=== PATIENT | male | born 1990 | race Caucasian/White ===

== ENCOUNTER 2019-11-13 21:34 | Emergency (ER) | payer MEDICAID ==
[2019-11-13] MEDS ORDERED: Succinylcholine 200 MG/10 ML MDV IV ONE (21:35)
[2019-11-13] MEDS ORDERED: LORazepam 2 MG/ML SDV IM ONE ×2 (21:37→22:23)
--- NOTE | 2019-11-13 21:42 | EDM.PDOC ---
ED HPI GENERAL MEDICAL PROBLEM - General Stated Complaint: AMBULANCE Time Seen by Provider: 11/13/19 21:38 Source of Information: Reports: EMS History Limitations: Reports: Physical Impairment, Other (deaf) - History of Present Illness INITIAL COMMENTS - FREE TEXT/NARRATIVE: EMS told by pt's cousin pt is deaf had seizure and his mother recently pt unco-op with care and transport. swung at EMS & staff. pt won't write to communicate. pt arrived screaming on-off. sign language vis i-pad contacted to assist. Generalized Pain Score (Numeric/FACES): 8 ED ROS GENERAL - Review of Systems Review Of Systems: Comprehensive ROS is negative, except as noted in HPI. - Physical Exam Exam: See Below Exam Limited By: Other (deaf and unco-op) General Appearance: Alert, WD/WN, Anxious Eye Exam: Bilateral Eye: PERRL (pupils ess ER @ 4mm) Ears: Hearing Grossly Normal Throat/Mouth: Normal Voice, No Airway Compromise Head Exam: Atraumatic Neck: Non-Tender, Full Range of Motion Respiratory/Chest: No Respiratory Distress Cardiovascular: Regular Rate, Rhythm GI/Abdominal: Soft, Non-Tender Neuro Exam (Abbreviated): Alert, Normal Cognition, No Motor/Sensory Deficits Psychiatric: Anxious Skin Exam: Warm, Dry, Normal Color Course - Vital Signs Last Recorded V/S: Last Vital Signs Temp 37.2 C 11/13/19 21:48 Pulse 132 H 11/13/19 21:48 Resp 20 11/13/19 21:48 BP 144/88 H 11/13/19 21:48 Pulse Ox 97 11/13/19 21:48 - Orders/Labs/Meds Orders: Active Orders 24 hr Category Date Time Status EKG 12 Lead [EKG Documentation Completion] [RC] STAT Care 11/13/19 21:55 Active Labs: Laboratory Tests 11/13/19 11/13/19 11/13/19 Range/Units 21:40 21:40 22:05 WBC 9.0 (5.0-10.0) 10^3/uL RBC 4.99 (4.6-6.2) 10^6/uL Hgb 16.4 (14.0-18.0) g/dL Hct 46.2 (40.0-54.0) % MCV 92.6 (80-100) fL MCH 32.9 (27.0-34.0) pg MCHC 35.5 H (33.0-35.0) g/dL Plt Count 294 (150-450) 10^3/uL Neut % (Auto) 22.1 L (42.2-75.2) % Lymph % (Auto) 70.6 H (20.5-50.1) % [place] % (Auto) 5.9 (2-8) % Eos % (Auto) 1.0 (1.0-3.0) % Baso % (Auto) 0.4 (0.0-1.0) % Sodium 140 (136-145) mmol/L Potassium 3.8 (3.5-5.1) mmol/L Chloride 100 (98-107) mmol/L Carbon Dioxide 25 (21-32) mmol/L Anion Gap 18.8 H (7-13) mEq/L BUN 8 (7-18) mg/dL Creatinine 1.25 (0.70-1.30) mg/dL Est Cr Clr Drug Dosing TNP Estimated GFR (MDRD) > 60 BUN/Creatinine Ratio 6.4 (No establ ref range) Glucose 307 H (74-99) mg/dL Calcium 8.2 L (8.5-10.1) mg/dL Total Bilirubin 1.0 (0.2-1.0) mg/dL AST 208 H (15-37) U/L ALT 189 H (16-63) U/L Alkaline Phosphatase 128 H (46-116) U/L Total Protein 8.4 H (6.4-8.2) g/dL Albumin 4.2 (3.4-5.0) g/dL Globulin 4.2 Albumin/Globulin Ratio 1.0 Urine Color Yellow (YELLOW) Urine Appearance Slightly cloudy (CLEAR) Urine pH 6.0 (5.0-9.0) Ur Specific [place] 1.015 (1.005-1.030) Urine Protein 100 H (NEGATIVE) Urine Glucose (UA) 500 H (NEGATIVE) Urine Ketones 40 H (NEGATIVE) Urine Occult Blood Trace-intact H (NEGATIVE) Urine Nitrite Negative (NEGATIVE) Urine Bilirubin Negative (NEGATIVE) Urine Urobilinogen 0.2 (0.2-1.0) mg/dL Ur Leukocyte Esterase Negative (NEGATIVE) Urine RBC 0-5 /HPF Urine WBC 0-5 (0-5/HPF) /HPF Ur Epithelial Cells Rare (NOT SEEN) /HPF Urine Bacteria Rare (0-FEW/HPF) /HPF Urine Opiates Screen (NEGATIVE) Ur Oxycodone Screen (NEGATIVE) Urine Methadone Screen (NEGATIVE) Ur Barbiturates Screen (NEGATIVE) U Tricyclic Antidepress (NEGATIVE) Ur Phencyclidine Scrn (NEGATIVE) Ur Amphetamine Screen (NEGATIVE) U Methamphetamines Scrn (NEGATIVE) Urine MDMA Screen (NEGATIVE) U Benzodiazepines Scrn (NEGATIVE) Urine Cocaine Screen (NEGATIVE) U Marijuana (THC) Screen (NEGATIVE) Ethyl Alcohol 402 (0) mg/dL 11/13/19 Range/Units 22:05 WBC (5.0-10.0) 10^3/uL RBC (4.6-6.2) 10^6/uL Hgb (14.0-18.0) g/dL Hct (40.0-54.0) % MCV (80-100) fL MCH (27.0-34.0) pg MCHC (33.0-35.0) g/dL Plt Count (150-450) 10^3/uL Neut % (Auto) (42.2-75.2) % Lymph % (Auto) (20.5-50.1) % [place] % (Auto) (2-8) % Eos % (Auto) (1.0-3.0) % Baso % (Auto) (0.0-1.0) % Sodium (136-145) mmol/L Potassium (3.5-5.1) mmol/L Chloride (98-107) mmol/L Carbon Dioxide (21-32) mmol/L Anion Gap (7-13) mEq/L BUN (7-18) mg/dL Creatinine (0.70-1.30) mg/dL Est Cr Clr Drug Dosing Estimated GFR (MDRD) BUN/Creatinine Ratio (No establ ref range) Glucose (74-99) mg/dL Calcium (8.5-10.1) mg/dL Total Bilirubin (0.2-1.0) mg/dL AST (15-37) U/L ALT (16-63) U/L Alkaline Phosphatase (46-116) U/L Total Protein (6.4-8.2) g/dL Albumin (3.4-5.0) g/dL Globulin Albumin/Globulin Ratio Urine Color (YELLOW) Urine Appearance (CLEAR) Urine pH (5.0-9.0) Ur Specific [place] (1.005-1.030) Urine Protein (NEGATIVE) Urine Glucose (UA) (NEGATIVE) Urine Ketones (NEGATIVE) Urine Occult Blood (NEGATIVE) Urine Nitrite (NEGATIVE) Urine Bilirubin (NEGATIVE) Urine Urobilinogen (0.2-1.0) mg/dL Ur Leukocyte Esterase (NEGATIVE) Urine RBC /HPF Urine WBC (0-5/HPF) /HPF Ur Epithelial Cells (NOT SEEN) /HPF Urine Bacteria (0-FEW/HPF) /HPF Urine Opiates Screen Negative (NEGATIVE) Ur Oxycodone Screen Negative (NEGATIVE) Urine Methadone Screen Negative (NEGATIVE) Ur Barbiturates Screen Negative (NEGATIVE) U Tricyclic Antidepress Negative (NEGATIVE) Ur Phencyclidine Scrn Negative (NEGATIVE) Ur Amphetamine Screen Negative (NEGATIVE) U Methamphetamines Scrn Negative (NEGATIVE) Urine MDMA Screen Negative (NEGATIVE) U Benzodiazepines Scrn Negative (NEGATIVE) Urine Cocaine Screen Negative (NEGATIVE) U Marijuana (THC) Screen Negative (NEGATIVE) Ethyl Alcohol (0) mg/dL Meds: Medications Discontinued Medications Generic Name Dose Route Start Last Admin Trade Name Freq PRN Reason Stop Dose Admin Haloperidol Lactate 5 mg 11/13/19 22:20 11/13/19 22:23 Haldol IVPUSH 11/13/19 22:21 5 mg ONETIME ONE Administration Lorazepam 2 mg 11/13/19 21:37 11/13/19 21:57 Ativan IM 11/13/19 21:38 2 mg ONETIME ONE Administration Lorazepam Confirm 11/13/19 22:10 11/13/19 22:23 Ativan Administered 11/13/19 22:11 2 mg Dose Administration 2 mg .ROUTE .STK-MED ONE - Re-Assessments/Exams Free Text/Narrative Re-Assessment/Exam: 11/13/19 22:14 pt communicating with sign lang' person aobut the devils and needing to kill and became more agitated. mental health called and Ezio will come [place]. 11/13/19 22:17 pt's sister contacted stating pt does drink alcohol but do h/o drugs. 11/13/19 22:[address] reynolds @ who kindly accepted pt. Departure - Departure Time of Disposition: 22:51 Disposition: DC/Tfer to Acute Hospital 02 Condition: Fair Clinical Impression: Psychosis Qualifiers: Psychosis type: unspecified psychosis type Qualified Code(s): F29 - Unspecified psychosis not due to a substance or known physiological condition Alcohol intoxication Qualifiers: Complication of substance-induced condition: with unspecified complication Qualified Code(s): F10.929 - Alcohol use, unspecified with intoxication, unspecified - Discharge Information Forms: Interfacility Transfer EMTALA Sepsis Event Note - Focused Exam Vital Signs: Vital Signs Temp Pulse Resp BP Pulse Ox 11/13/19 21:48 37.2 C 132 H 20 144/88 H 97 Date Exam was Performed: 11/13/19 Time Exam was Performed: 22:50 - My Orders Last 24 Hours: My Active Orders 11/13/19 21:55 EKG 12 Lead [EKG Documentation Completion] [RC] STAT - Assessment/Plan Last 24 Hours: My Active Orders 11/13/19 21:55 EKG 12 Lead [EKG Documentation Completion] [RC] STAT
[2019-11-13] MEDS ORDERED: LORazepam 2 MG/ML SDV ONE (22:10)
[2019-11-13 22:14] LABS: ANION GAP 18.8 mEq/L (7-13); CHLORIDE,CL 100 mmol/L (98-107); SODIUM,NA 140 mmol/L (136-145)
[2019-11-13] MEDS ORDERED: Haloperidol Lactate 5 MG/ML SDV IVPUSH ONE (22:20)
[2019-11-13] MEDS: LORazepam 2 MG/ML SDV IM ONE (22:23)
--- NOTE | 2019-11-13 23:08 | PCM.PRNOTE ---
- Free Text/Narrative Note: ER Intubation Called in to assess and treat 29 year old male. Intoxicated. CHRISTINA 400s. Violent prior to arrival. Tx with ativan prior to arrival by ED staff. Pt. obtunded. VSS. Pre ox 100% oxygen time 5 minutes. Succinylcholine 100mg IVP DVL times 1 with #3 glidescope. #8.0 ETT through cords. BBS. + end tidal carbon dioxide. Tube secured @21 cm at lip. Atraumatic. 18F OGT placed with + gastric contents noted. Stat PCXR ordered. Flight crew present in ED to take over care and transport patient.
--- NOTE | 2019-11-13 23:13 | CR ---
PROCEDURE INFORMATION: Exam: XR Chest, 1 View Exam date and time: 11/13/2019 11:05 PM Age: 29 years old Clinical indication: Other: Tube placements; Additional info: Postintubation TECHNIQUE: Imaging protocol: XR of the chest Views: 1 view. COMPARISON: No relevant prior studies available. FINDINGS: Tubes, catheters and devices: An endotracheal tube is placed with its tip approximately 5.7 cm from the mariann. A nasogastric tube is present with its tip in the proximal stomach. EKG leads overlie the chest. Lungs: There is mild bronchial wall thickening, mild indistinctness of the pulmonary vasculature and some mildly increased interstitial markings seen in the lower hemithoraces. These findings may represent mild bronchitis and bilateral basilar atelectasis versus pneumonitis. Pleural space: Unremarkable. No pleural effusion. No pneumothorax. Heart/Mediastinum: Unremarkable. No cardiomegaly. Bones/joints: Unremarkable. IMPRESSION: 1. Endotracheal tube tip approximately 5.7 cm from the mariann. 2. Bronchial wall thickening and some increased interstitial markings present in the lower hemithoraces, findings that could represent a bilateral bronchitis and bilateral basilar interstitial pneumonitis.
== END 2019-11-13 23:25 ==
LOC: DL.ED 21:34
DX: F29 Unspecified psychosis not due to a substance or known physiological condition (principal); F10.129 Alcohol abuse with intoxication, unspecified; Y90.8 Blood alcohol level of 240 mg/100 ml or more; H91.3 Deaf nonspeaking, not elsewhere classified
CPT/HCPCS: 31500; 36415; 71045; 80053; 80305-QW; 80307; 81001; 85025; 93005; 96374; 96375; 99285-25; J0330; J1630; J2060

== ENCOUNTER 2024-03-18 17:14 | Emergency (ER) | payer MEDICARE, MEDICAID ==
[2024-03-18 17:52] LABS: BASOPHILS PERCENT AUTO 0.5 % (0.0-1.0); EOSINOPHILS PERCENT AUTO 1.5 % (1.0-3.0); HEMOGLOBIN 10.2 g/dL (14.0-18.0); LYMPHOCYTES PERCENT AUTO 47.1 % (20.5-50.1); MEAN CORPUSCULAR HEMOGLOBIN 33.4 pg (27.0-34.0); MEAN CORPUSCULAR VOLUME 98.4 fL (80-100); MONOCYTES PERCENT AUTO 6.2 % (2-8); NEUTROPHILS PERCENT AUTO 44.7 % (42.2-75.2); PLATELET COUNT,PLT 178 10^3/uL (150-450); RED BLOOD CELL COUNT 3.05 10^6/uL (4.6-6.2); WHITE BLOOD CELL COUNT,WBC 14.8 10^3/uL (5.0-10.0)
[2024-03-18 18:03] LABS: A/G RATIO 0.7; ALBUMIN 3.7 g/dL (3.4-5.0); ANION GAP 13.2 mEq/L (7-13); BILIRUBIN TOTAL 5.4 mg/dL (0.2-1.0); BUN/CREATININE RATIO 6.5 (No establ ref range); CREATININE 0.93 mg/dL (0.70-1.30); EST CRCL DRUG DOSING (CG) 115.09 mL/min; POTASSIUM,K 3.2 mmol/L (3.5-5.1); PROTEIN TOTAL,TP 9.3 g/dL (6.4-8.2)
[2024-03-18 18:13] LABS: INR 1.4 (0.9-1.2); PROTHROMBIN TIME 14.6 SEC (9.0-12.0)
[2024-03-18] MEDS: Iopamidol 612 MG/ML 100 ML Bottle IVPUSH ONE (18:33)
[2024-03-18] MEDS: Potassium Chloride 10 MEQ Tab.ER PO ONE (19:57)
[2024-03-18] MEDS: Piperacillin/Tazobactam 4.5 GM in Sodium Chloride 0.9% 100 ML IV ONE (20:03)
[2024-03-23 17:46] LABS: HAV AB IGM Negative (Negative); HBC IGM Negative (Negative); HEP B SURG AG Negative (Negative); HEP C AB BY CIA Negative (Negative); HEP C AB BY CIA INDEX 0.16 IV
== END 2024-03-18 20:41 | disposition left against medical advice (07) ==
LOC: DL.ED 17:14
DX: S61.210A Laceration without foreign body of right index finger without damage to nail, initial encounter (principal); F10.929 Alcohol use, unspecified with intoxication, unspecified; E87.6 Hypokalemia; D72.829 Elevated white blood cell count, unspecified; K81.0 Acute cholecystitis; R94.5 Abnormal results of liver function studies; E11.9 Type 2 diabetes mellitus without complications; Z79.84 Long term (current) use of oral hypoglycemic drugs; Z79.4 Long term (current) use of insulin; X58.XXXA Exposure to other specified factors, initial encounter
CPT/HCPCS: 12001; 36415; 71045; 74177; 80053; 80074; 80307; 83690; 85025; 85610; 96365; 99284; 99284-25; A9270-GY; J2543; J3490; Q9967

== ENCOUNTER 2025-02-21 06:28 | Day surgery (SDC) | payer MEDICARE, MEDICAID ==
[2025-02-21] MEDS ORDERED: Lactated Ringers 1,000 ML IV ONE (06:29)
[2025-02-21] MEDS ORDERED: Propofol 200 MG/20 ML SDV IV ONE (06:29)
[2025-02-21] MEDS: Lactated Ringers 1,000 ML IV SCH (07:12)
[2025-02-21] MEDS ORDERED: Propofol 200 MG/20 ML SDV ONE (09:35)
== END 2025-02-21 09:24 | disposition home or self-care (01) ==
LOC: DL.ENDO 06:28
PROVIDERS: ATTEND Internal Medicine Gastroenterology
DX: K29.50 Unspecified chronic gastritis without bleeding (principal); B96.81 Helicobacter pylori [H. pylori] as the cause of diseases classified elsewhere; I78.1 Nevus, non-neoplastic; E11.9 Type 2 diabetes mellitus without complications; K74.60 Unspecified cirrhosis of liver; E66.9 Obesity, unspecified; Z68.29 Body mass index [BMI] 29.0-29.9, adult; Z79.899 Other long term (current) drug therapy
CPT/HCPCS: 00731; 43239; J2003; J2704; J7120